=== PATIENT | male | born 1940 | race Caucasian/White ===

== ENCOUNTER 2019-07-07 08:11 | Inpatient (IN) | payer OTHER ==
[~2019-07-07] VITALS: Ht 167.6 cm; Wt 68.7 kg
[~2019-07-07 08:11] MED LIST: ASCO500 PO; ASPI325 PO; ASPI81CH PO; Aspir 8181 MG PO; GLUCOSAMINE CH1 EAC3 PO; GLUCOSAMINE-CH1 EA12 PO; MULVITMIND PO; OXYACE5T PO; THERA-D2000 UNIT PO; THERA1 EACH PO; VITAMIN C500 M1 PO
[2019-07-07] MEDS ORDERED: MYRBETRIQ50 MG PO (08:25)
[2019-07-07 08:39] LABS: BASOPHILS ABSOLUTE AUTO 0.01 K/mm3 (0.00-0.23); BASOPHILS PERCENT AUTO 0 % (0-2); EOSINOPHILS PERCENT AUTO 2 % (0-6); Hematocrit 45.3 % (37.0-53.0); Hemoglobin 15.8 g/dL (13.5-17.5); IMMATURE GRAN ABSOLUTE AUTO 0.01 K/mm3 (0.00-0.10); IMMATURE GRAN PERCENT AUTO 0 % (0-1); LYMPHOCYTES ABSOLUTE AUTO 1.13 K/mm3 (0.84-5.20); LYMPHOCYTES PERCENT AUTO 24 % (21-46); MONOCYTES ABSOLUTE AUTO 0.25 K/mm3 (0.16-1.47); MONOCYTES PERCENT AUTO 5 % (4-13); Mean Corpuscular HGB 32.5 pg (26.0-34.0); Mean Corpuscular HGB Conc 34.9 g/dL (31.5-36.5); Mean Corpuscular Volume 93 fL (80-100); Mean Platelet Volume 10.2 fL (9.1-12.4); NEUTROPHILS ABSOLUTE AUTO 3.23 K/mm3 (1.96-9.15); NEUTROPHILS PERCENT AUTO 68 % (41-73); Platelet Count 148 K/mm3 (150-400); RDW Coefficient Variation 12.1 % (11.7-14.2); RDW Standard Deviation 42.1 fL (35.1-46.3); Red Blood Cell Count 4.86 M/mm3 (4.30-5.90); White Blood Cell Count 4.73 K/mm3 (4.00-11.30)
[2019-07-07 08:50] LABS: Alanine Aminotransfer (ALT/SGP 224 U/L (12-78); Albumin, Blood 3.8 g/dL (3.4-5.0); Albumin/Globulin Ratio 1.3 (0.8-1.8); Anion Gap 5 mmol/L (6-16); Aspartate Aminotrans (AST/SGOT 192 U/L (12-37); Blood Urea Nitrogen 15 mg/dL (8-24); Bun/Creatinine Ratio 21.2 (12.0-20.0); CO2, Blood 28 mmol/L (21-32); Calcium, Blood 9.3 mg/dL (8.5-10.1); Chloride, Blood 108 mmol/L (98-108); Creatinine, Blood 0.71 mg/dL (0.60-1.20); Glomerular Filtration Rate >60 (60-); Glucose, Blood 121 mg/dL (70-99); Potassium, Blood 4.1 mmol/L (3.5-5.5); Sodium, Blood 141 mmol/L (136-145); Total Protein, Blood 6.8 g/dL (6.4-8.2)
[2019-07-07 08:53] LABS: Alk Phos 119 U/L (50-136); Troponin I <0.015 ng/mL (0.000-0.040)
--- NOTE | 2019-07-07 19:19 | NUR ---
PT ARRIVED TO UNIT FROM IMAGING TRANSFERRED INDEPENDENTLY TO BED FROM . AT BEDSIDE. DENIED PAIN, N/V OR SOB. VSS. ORIENTED TO ROOM AND CALL LIGHT. REPORT GIVEN TO ONCOMING SHIFT.
--- NOTE | 2019-07-08 04:09 | NUR ---
SHIFT SUMMARY PT AAOX4 VSS. NPO SINCE MIDNIGHT. PATIENT HAS DENIED PAIN AND NAUSEA. PT VOIDING IN URINAL. RESTING IN BED DURING SHIFT. IV FLUIDS RUNNING PER EMAR.
[2019-07-08 05:15] LABS: Alanine Aminotransfer (ALT/SGP 405 U/L (12-78); Albumin, Blood 3.6 g/dL (3.4-5.0); Albumin/Globulin Ratio 1.2 (0.8-1.8); Alk Phos 130 U/L (50-136); Anion Gap 6 mmol/L (6-16); Aspartate Aminotrans (AST/SGOT 172 U/L (12-37); Blood Urea Nitrogen 12 mg/dL (8-24); Bun/Creatinine Ratio 18.4 (12.0-20.0); CO2, Blood 25 mmol/L (21-32); Calcium, Blood 9.1 mg/dL (8.5-10.1); Chloride, Blood 110 mmol/L (98-108); Creatinine, Blood 0.65 mg/dL (0.60-1.20); Globulin, Blood 2.9 g/dL (2.2-4.0); Glomerular Filtration Rate >60 (60-); Glucose, Blood 84 mg/dL (70-99); Potassium, Blood 4.3 mmol/L (3.5-5.5); Sodium, Blood 141 mmol/L (136-145); Total Protein, Blood 6.5 g/dL (6.4-8.2)
--- NOTE | 2019-07-08 12:49 | NUR ---
INTO [facility]IA [facility]. History, Chart, Medications and Allergies reviewed before start of procedure.Lungs clear T/O to Auscultation. Patient confirms NPO status and agrees with scheduled surgery. Patient reports completing Chlorhexadine shower X2 prior to admission to hospital.Surgical site prepped with 2% Chlorhexidine cloth wipe.
--- NOTE | 2019-07-08 19:08 | NUR ---
SHIFT SUMMARY PT A&OX4, VSS, S/P LAP YASSINE 4 SITES CDI. DENIES PAIN. JESSIKA CLEAR LIQ PO INTAKE. STAND/PIVOT TO BED UPON RETURN FROM PACU. REPORTED TO DONALD WEEKS.
--- NOTE | 2019-07-09 04:57 | NUR ---
SHIFT SUMMARY PT IS A/O X4. PT HAS VOIDED SINCE SURGERY AND AMBULATED TO BATHROOM. TOLERATING CLEAR LIQUID DIET. PT HAS BEEN RESTING THE MAJORITY OF THE SHIFT. REPORTS NO PAIN OR NAUSEA. DRESSINGS TO SURGICAL SITES ARE CDI. ASSISTED WITH ADL'S PRN.
--- NOTE | 2019-07-09 12:01 | NUR ---
DISCHARGE SUMMARY PT A&OX4, VSS, WALKED OFF FLOOR WITH , TO GO HOME WITH ALL PERSONAL POSSESSIONS INCLUDING DC PACKET. DC INSTRUCTIONS PROVIDED. PT REP UNDERSTANDING THOSE INSTRUCTIONS INCLUDING LEAVE STERI STRIPS IN PLACE UNTIL THEY COME OFF ON THEIR OWN 7-10 DAYS, OR UNTIL 2 WK FU WITH SURGEON WHEN THEY WILL BE REMOVED, OK TO SHOWER, NO TUB/JACUZZI. IV DC'D.
== END 2019-07-09 11:30 | disposition home or self-care (01) | DRG 419 ==
LOC: ER 08:11 → SURS 08:12 → ER 08:12 → SURS 08:13 → ER 16:37 → SURS 16:37
PROVIDERS: Emergency Medicine; Surgery; ADMIT Surgery
PROC: BF131ZZ Fluoroscopy of Gallbladder and Bile Ducts using Low Osmolar Contrast (ICD-10-PCS; 2019-07-08)
PROC: 0FT44ZZ Resection of Gallbladder, Percutaneous Endoscopic Approach (ICD-10-PCS; principal; 2019-07-08 13:30)
DX: K80.80 Other cholelithiasis without obstruction (principal); Z79.82 Long term (current) use of aspirin
CPT/HCPCS: 36415; 71046; 74181; 74300; 76705; 80053; 83690; 84484; 85025; 88304; 93005; 93010; 99285-25; C1729; J0690; J1100; J1885; J2250; J2405; J2704; J3010; J7120

== ENCOUNTER 2020-06-03 07:49 | Day surgery (SDC) | payer OTHER ==
[~2020-06-03] VITALS: Ht 167.6 cm; Wt 69.1 kg
[~2020-06-03 07:49] MED LIST changes: +MYRBETRIQ50 MG PO
[2020-06-03] MEDS ORDERED: SOLI5 (08:20)
== END 2020-06-03 09:56 | disposition home or self-care (01) ==
LOC: ORSCSDS 07:49
PROVIDERS: Internal Medicine Gastroenterology
PROC: 0DBK8ZX Excision of Ascending Colon, Via Natural or Artificial Opening Endoscopic, Diagnostic (ICD-10-PCS; principal; 2020-06-03 09:15)
PROC: 0DBH8ZX Excision of Cecum, Via Natural or Artificial Opening Endoscopic, Diagnostic (ICD-10-PCS; principal; 2020-06-03 09:15)
DX: Z12.11 Encounter for screening for malignant neoplasm of colon (principal); Z85.038 Personal history of other malignant neoplasm of large intestine; Z86.010 Personal history of colon polyps; Z80.0 Family history of malignant neoplasm of digestive organs; D12.0 Benign neoplasm of cecum; D12.2 Benign neoplasm of ascending colon; K57.30 Diverticulosis of large intestine without perforation or abscess without bleeding; K64.8 Other hemorrhoids; K21.9 Gastro-esophageal reflux disease without esophagitis; I10 Essential (primary) hypertension; Z79.82 Long term (current) use of aspirin; Z79.899 Other long term (current) drug therapy
CPT/HCPCS: 88305; J2704; J7120

== ENCOUNTER 2023-06-10 23:30 | Emergency (ER) | payer OTHER ==
[~2023-06-10] VITALS: Ht 167.6 cm; Wt 70.3 kg
[~2023-06-10 23:30] MED LIST changes: +SOLI5
[2023-06-10 23:54] LABS: BASOPHILS ABSOLUTE AUTO 0.01 K/mm3 (0.00-0.23); BASOPHILS PERCENT AUTO 0 % (0-2); EOSINOPHILS ABSOLUTE AUTO 0.15 K/mm3 (0.00-0.68); EOSINOPHILS PERCENT AUTO 2 % (0-6); Hematocrit 41.3 % (37.0-53.0); Hemoglobin 14.8 g/dL (13.5-17.5); IMMATURE GRAN ABSOLUTE AUTO 0.01 K/mm3 (0.00-0.10); IMMATURE GRAN PERCENT AUTO 0 % (0-1); LYMPHOCYTES ABSOLUTE AUTO 1.73 K/mm3 (0.84-5.20); LYMPHOCYTES PERCENT AUTO 24 % (21-46); MONOCYTES ABSOLUTE AUTO 0.48 K/mm3 (0.16-1.47); MONOCYTES PERCENT AUTO 7 % (4-13); Mean Corpuscular HGB 32.9 pg (26.0-34.0); Mean Corpuscular HGB Conc 35.8 g/dL (31.5-36.5); Mean Corpuscular Volume 92 fL (80-100); Mean Platelet Volume 10.6 fL (9.1-12.4); NEUTROPHILS ABSOLUTE AUTO 4.81 K/mm3 (1.96-9.15); NEUTROPHILS PERCENT AUTO 67 % (41-73); Platelet Count 142 K/mm3 (150-400); RDW Coefficient Variation 12.1 % (11.7-14.2); RDW Standard Deviation 41.1 fL (35.1-46.3); White Blood Cell Count 7.19 K/mm3 (4.00-11.30)
[2023-06-10 23:55] LABS: Source, Urine Clean Catch
[2023-06-10 23:57] LABS: Bilirubin, Urine Neg (Neg); Blood, Urine Neg (Neg); Glucose Qualitative, Urine Neg (Neg); Ketones, Urine Neg (Neg); Leukocyte Esterase, Urine Neg (Neg); Nitrite, Urine Neg (Neg); Protein, Urine 1+ (Neg); Urobilinogen, Urine 1+ (Normal)
[2023-06-11 00:08] LABS: Appearance, Urine Clear (Clear); Color, Urine Yellow (P-Yellow)
[2023-06-11 00:10] LABS: Albumin, Blood 3.5 g/dL (3.4-5.0); Albumin/Globulin Ratio 1.1 (0.8-1.8); Bilirubin, Total 0.4 mg/dL (0.1-1.0); Bun/Creatinine Ratio 18.1 (12.0-20.0); Calcium, Blood 9.2 mg/dL (8.5-10.1); Globulin, Blood 3.2 g/dL (2.2-4.0); Potassium, Blood 4.2 mmol/L (3.5-5.5); Total Protein, Blood 6.7 g/dL (6.4-8.2)
[2023-06-11 00:26] LABS: Magnesium, Blood 2.2 mg/dL (1.6-2.4)
[2023-06-11 02:51] VITALS: BP 140/76
== END 2023-06-11 02:56 | disposition home or self-care (01) ==
LOC: ER 23:30
PROVIDERS: Emergency Medicine
DX: R10.31 Right lower quadrant pain (principal); K76.89 Other specified diseases of liver; Z79.82 Long term (current) use of aspirin; Z79.899 Other long term (current) drug therapy; Z90.49 Acquired absence of other specified parts of digestive tract; Z85.038 Personal history of other malignant neoplasm of large intestine
CPT/HCPCS: 74176; 80053; 83605; 83690; 83735; 84145; 85025; 99284-25

== ENCOUNTER 2024-10-08 10:42 | Day surgery (SDC) | payer OTHER ==
[~2024-10-08] VITALS: Ht 165.1 cm; Wt 68.3 kg
[~2024-10-08 10:42] MED LIST changes: +CENTRUM SILVER1 EAC2; +ERGO400; +GLUCHON; +Lactated Ringer's 1,000 ML IV ONE; +Prinivil10 MG PO; +Vitamin C100 M1; +propofoL 50 ML IV ONE
[2024-10-08] MEDS ORDERED: DIPHENHYDRAMINE (11:41)
[2024-10-08] MEDS ORDERED: Lactated Ringer's 1,000 ML IV ONE (12:10)
[2024-10-08 14:02] VITALS: BP 111/71
== END 2024-10-08 14:14 | disposition home or self-care (01) ==
LOC: ORSCSDS 10:42
PROVIDERS: Internal Medicine Gastroenterology
PROC: 0DBK8ZX Excision of Ascending Colon, Via Natural or Artificial Opening Endoscopic, Diagnostic (ICD-10-PCS; principal; 2024-10-08 12:15)
PROC: 0DBL8ZX Excision of Transverse Colon, Via Natural or Artificial Opening Endoscopic, Diagnostic (ICD-10-PCS; principal; 2024-10-08 12:15)
DX: Z12.11 Encounter for screening for malignant neoplasm of colon (principal); Z85.038 Personal history of other malignant neoplasm of large intestine; Z86.0100 Personal history of colon polyps, unspecified; Z80.0 Family history of malignant neoplasm of digestive organs; D12.2 Benign neoplasm of ascending colon; D12.3 Benign neoplasm of transverse colon; K57.30 Diverticulosis of large intestine without perforation or abscess without bleeding; Z79.899 Other long term (current) drug therapy; Z79.82 Long term (current) use of aspirin
CPT/HCPCS: 88305; J2704; J7120